=== PATIENT | male | born 1985 | race Caucasian/White ===

== ENCOUNTER → 2021-05-28 08:48 | Outpatient (CLI) | payer OTHER, SELFPAY ==
[2021-05-28 09:45] LABS: Add Manual Diff / Slide Review NO; Basophils Absolute Auto 100 /uL (0-100); Eosinophils Absolute Auto 200 /uL (0-450); Hematocrit 46.1 % (41-53); Hemoglobin 15.6 g/dL (13.5-17.5); Lymphocytes Absolute Auto 1700 /uL (1100-4500); Lymphocytes Percent Auto 30.7 % (25-40); Mean Corpuscular HGB Conc 33.8 % (30-36); Mean Corpuscular Hemoglobin 31.8 PG (26-34); Mean Corpuscular Volume 94.2 fL (80-100); Monocytes Absolute Auto 700 /uL (0-900); Monocytes Percent Auto 12.1 % (3-14); Neutrophils Absolute Auto 2900 /uL (1500-7000); Neutrophils Percent Auto 52.2 % (50-75); Platelet Count 209 X10^3/uL (150-400); Red Blood Cell Count 4.89 X10^6/uL (4.5-5.9); Red Cell Distribution Width 12.3 % (11.6-14.8); White Blood Cell Count 5.6 X10^3/uL (4.5-11.0)
[2021-05-28 09:58] LABS: Alanine Aminotransferase 30 IU/L (<50); Albumin 4.7 g/dL (3.5-5.0); Albumin Globulin Ratio 1.6 (1.0-2.8); Alkaline Phosphatase 41 U/L (38-126); Aspartate Aminotransferase 35 IU/L (17-59); BUN Creatinine Ratio 21.2 (6-22); Bilirubin Total 0.6 mg/dL (0.2-1.3); Blood Urea Nitrogen 14 mg/dL (9-20); Calcium 9.6 mg/dL (8.4-10.2); Carbon Dioxide 27 mmol/L (22-32); Chloride 105 mmol/L (98-107); Cholesterol 179 mg/dL (140-199); Estimated Glomerular Filt Rate > 60.0 mL/min (>60); Globulin 2.9 g/dL (1.7-4.1); Glucose 99 mg/dL (70-100); HDL Cholesterol 57 mg/dL (40-60); HEMOLYSIS < 15 (0-50); LDL Cholesterol Calculated 108 mg/dL (<100); Potassium 4.4 mmol/L (3.4-5.1); Sodium 140 mmol/L (137-145); Total Protein 7.6 g/dL (6.3-8.2); Triglycerides 72 mg/dL (35-150)
[2021-05-28 10:44] LABS: TSH w/ Reflex to FT4 2.81 uIU/mL (0.47-4.68)
== END ==
PROVIDERS: PCP Family Medicine; Referring Provider Family Medicine; Visit Provider Family Medicine
DX: F41.9 Anxiety disorder, unspecified (principal); I10 Essential (primary) hypertension; Z13.220 Encounter for screening for lipoid disorders
CPT/HCPCS: 36415; 80053; 80061; 84443; 85025

== ENCOUNTER → 2021-06-30 17:31 | Outpatient (CLI) | payer OTHER, SELFPAY ==
--- NOTE | 2021-06-30 17:33 | DI.MRI.S_ITS ---
PROCEDURE: MR ANKLE LT WO CON INDICATIONS: Achilles tendinitis, left leg TECHNIQUE: Noncontrast sagittal T1 spin echo and T2 fast spin echo with fat saturation, axial proton density fast spin echo and T2 fast spin echo with fat saturation, coronal T1 spin echo and T2 fast spin echo with fat saturation through the ankle/hindfoot. COMPARISON: None. FINDINGS: Image quality: Excellent. Bones and joints: No bone marrow contusions or fractures. No hindfoot coalitions. No osteochondral injuries of the talar dome. Small tibiotalar joint effusion is seen. No gross intra-articular loose body. Medial structures: The posterior tibialis, flexor digitorum longus, and flexor hallucis longus tendons are intact. The posterior tibial neurovascular bundle appears normal within the tarsal tunnel, without extrinsic mass effect. The deep layer (anterior and posterior tibiotalar ligaments) and superficial layer (tibionavicular, tibiospring, and tibiocalcaneal ligaments) of the deltoid ligament appear normal. The spring ligament components (superomedial calcaneonavicular, medioplantar oblique calcaneonavicular, and inferoplantar longitudinal ligaments) are intact. Lateral structures: The anterior talofibular, calcaneofibular, and posterior talofibular ligaments appear intact. More superiorly, the anterior and posterior tibiofibular ligaments appear intact, as is the intermalleolar ligament. The tibiofibular syndesmosis is normal in width at 2 mm or less. The peroneus longus and brevis tendons demonstrate normal location and morphology. Adjacent bony peroneal tubercle and retrotrochlear prominence are normal in size. The sinus tarsi demonstrates normal fatty signal, without edema, fibrosis, or cyst formation. Visualized sinus tarsi components (cervical ligament, interosseous talocalcaneal ligament, roots of the inferior extensor retinaculum) appear normal. The calcaneonavicular and calcaneocuboid components of the bifurcate ligament appear intact. The dorsal calcaneocuboid ligament appears intact. Anterior structures: The tibialis anterior, extensor hallucis longus, and extensor digitorum longus tendons appear intact. The dorsal talonavicular ligament appears intact. Posterior and plantar structures: Achilles tendon is mildly thickened with very subtle intrasubstance T2 hyperintense signal near its insertion of posterior calcaneus and mild surrounding soft tissue edema. No full-thickness Achilles tendon rupture. Medial and lateral bands of the plantar fascia are of normal thickness. No abductor digiti quinti muscle atrophy to suggest Hanna neuropathy. IMPRESSION: 1. Distal Achilles tendinosis near its insertion on posterior calculus. No full-thickness Achilles tendon rupture. 2. Rest of the ankle tendons and ligaments are grossly intact. 3. No marrow edema. No fracture or dislocation. Small tibiotalar joint effusion. No gross loose body. Dictated by: Celestine Swain M.D. on 07/01/2021 at 9:26 Approved by: Celestine Swain M.D. on 07/01/2021 at 9:49
== END ==
PROVIDERS: PCP Family Medicine; Referring Provider Podiatrist; Visit Provider Podiatrist
DX: M76.62 Achilles tendinitis, left leg (principal); M25.572 Pain in left ankle and joints of left foot; M25.472 Effusion, left ankle; R26.2 Difficulty in walking, not elsewhere classified
CPT/HCPCS: 73721

== ENCOUNTER → 2022-10-12 11:21 | Outpatient (CLI) | payer OTHER, SELFPAY ==
--- NOTE | 2022-10-12 11:23 | DI.RAD.S_ITS ---
PROCEDURE: XR FOOT RT MIN 3V INDICATIONS: right foot and ankle pain TECHNIQUE: 3 views of the foot were acquired. COMPARISON: [facility], CR, XR FOOT 3+ VIEWS RIGHT, 08/02/2022, 8:15. [facility], CR, XR ANKLE RT MIN 3V, 10/12/2022, 11:30. FINDINGS: Bones: There is near complete interval healing of previous mid 5th metatarsal. Alignment is stable. Soft tissues: No tibiotalar joint effusion. Achilles tendon appears normal. IMPRESSION: No visualized acute fracture or dislocation. However, if clinical concern and/or pain persist, short interval imaging followup in 7-10 days is recommended, as occult injury cannot be definitively excluded. Dictated by: Dolly Cho M.D. on 10/12/2022 at 14:43 Approved by: Dolly Cho M.D. on 10/12/2022 at 14:43
--- NOTE | 2022-10-12 11:23 | DI.RAD.S_ITS ---
PROCEDURE: XR ANKLE RT MIN 3V INDICATIONS: right foot and ankle pain TECHNIQUE: 3 views of the ankle were acquired. COMPARISON: [facility], , XR FOOT RT MIN 3V, 10/12/2022, 11:30. FINDINGS: Bones: Stable line with near complete interval healing of 5th metatarsal fracture. Ankle mortise is normally aligned. No suspicious bony lesions. Soft tissues: No tibiotalar joint effusion. Achilles tendon appears normal. IMPRESSION: No visualized acute fracture or dislocation. However, if clinical concern and/or pain persist, short interval imaging followup in 7-10 days is recommended, as occult injury cannot be definitively excluded. Dictated by: Dolly Cho M.D. on 10/12/2022 at 14:44 Approved by: Dolly Cho M.D. on 10/12/2022 at 14:44
== END ==
PROVIDERS: PCP Family Medicine; Referring Provider Family Medicine; Visit Provider Family Medicine
DX: S92.351D Displaced fracture of fifth metatarsal bone, right foot, subsequent encounter for fracture with routine healing (principal); M25.571 Pain in right ankle and joints of right foot; M79.671 Pain in right foot; X58.XXXD Exposure to other specified factors, subsequent encounter
CPT/HCPCS: 73610; 73630

== ENCOUNTER → 2023-03-18 10:10 | Outpatient (CLI) | payer OTHER, SELFPAY ==
[2023-03-18 11:10] LABS: Add Manual Diff / Slide Review NO; Basophils Absolute Auto 0 /uL (0-100); Basophils Percent Auto 0.9 % (0-2); Eosinophils Absolute Auto 200 /uL (0-450); Eosinophils Percent Auto 4.1 % (2-4); Hematocrit 46.9 % (41-53); Hemoglobin 16.3 g/dL (13.5-17.5); Lymphocytes Absolute Auto 1500 /uL (1100-4500); Lymphocytes Percent Auto 29.2 % (25-40); Mean Corpuscular HGB Conc 34.8 % (30-36); Mean Corpuscular Hemoglobin 32.9 PG (26-34); Mean Corpuscular Volume 94.4 fL (80-100); Monocytes Absolute Auto 600 /uL (0-900); Monocytes Percent Auto 11.2 % (3-14); Neutrophils Absolute Auto 2800 /uL (1500-7000); Neutrophils Percent Auto 54.6 % (50-75); Platelet Count 247 X10^3/uL (150-400); Red Blood Cell Count 4.97 X10^6/uL (4.5-5.9); Red Cell Distribution Width 12.7 % (11.6-14.8); White Blood Cell Count 5.2 X10^3/uL (4.5-11.0)
[2023-03-18 11:32] LABS: Erythrocyte Sedimentation Rate 1 MM/HR (0-15)
[2023-03-18 12:05] LABS: TSH w/ Reflex to FT4 2.74 uIU/mL (0.47-4.68)
[2023-03-18 13:28] LABS: Alanine Aminotransferase 34 IU/L (<50); Albumin 4.5 g/dL (3.5-5.0); Albumin Globulin Ratio 1.3 (1.0-2.8); Alkaline Phosphatase 49 U/L (38-126); Aspartate Aminotransferase 35 IU/L (17-59); BUN Creatinine Ratio 19.7 (6-22); Bilirubin Total 0.8 mg/dL (0.2-1.3); Blood Urea Nitrogen 13 mg/dL (9-20); C-Reactive Protein Quant 0.5 mg/dL (<1.0); Calcium 9.2 mg/dL (8.4-10.2); Carbon Dioxide 25 mmol/L (22-32); Chloride 105 mmol/L (98-107); Cholesterol 219 mg/dL (140-199); Estimated Glomerular Filt Rate > 60 mL/min (>60); Globulin 3.4 g/dL (1.7-4.1); Glucose 102 mg/dL (70-100); HDL Cholesterol 60 mg/dL (40-60); HEMOLYSIS < 15 (0-50); LDL Cholesterol Calculated 141 mg/dL (<100); Potassium 4.2 mmol/L (3.4-5.1); Sodium 138 mmol/L (137-145); Total Protein 7.9 g/dL (6.3-8.2); Triglycerides 91 mg/dL (35-150)
[2023-03-23 14:51] LABS: ANA Screen, IFA Negative (.)
== END ==
PROVIDERS: PCP Family Medicine; Referring Provider Family Medicine; Visit Provider Family Medicine
DX: F41.9 Anxiety disorder, unspecified (principal); G89.29 Other chronic pain; M25.571 Pain in right ankle and joints of right foot; M25.572 Pain in left ankle and joints of left foot; M54.9 Dorsalgia, unspecified; M79.671 Pain in right foot
CPT/HCPCS: 36415; 80053; 80061; 84443; 85025; 85651; 86038; 86140

== ENCOUNTER → 2023-08-17 14:02 | Outpatient (CLI) | payer OTHER, SELFPAY ==
--- NOTE | 2023-08-17 14:03 | DI.RAD.S_ITS ---
PROCEDURE: XR LUMBAR SPINE MIN 4V INDICATIONS: chronic lumbar pain jean left side TECHNIQUE: 5 views of the lumbar spine were acquired, including bilateral oblique views. COMPARISON: None. FINDINGS: Bones: 5 nonrib-bearing vertebrae are present. No acute fracture or traumatic subluxation. Vertebral body height and disc spaces are maintained. Mild facet arthropathy and osseous neural foraminal narrowing at L4-5 and L5-S1. Slight dextroconvex curvature of the lumbar spine which may be positional. Soft tissues: Overlying bowel gas pattern is normal. No suspicious soft tissue calcifications. Oblique images: No pars defects. IMPRESSION: 1. No acute fracture or traumatic subluxation. 2. Vertebral body height and disc spaces are maintained. Mild degenerative changes at L4-5 and L5-S1. If symptoms persist, an MRI can be obtained for further evaluation. Dictated by: Meghna Barahona M.D. on 08/17/2023 at 16:57 Approved by: Meghna Barahona M.D. on 08/17/2023 at 17:02
== END ==
PROVIDERS: PCP Family Medicine; Referring Provider Physician Assistant; Visit Provider Physician Assistant
DX: M54.9 Dorsalgia, unspecified (principal); G89.29 Other chronic pain
CPT/HCPCS: 72110

== ENCOUNTER → 2024-05-01 12:28 | Outpatient (CLI) | payer OTHER, SELFPAY ==
--- NOTE | 2024-05-01 12:30 | DI.RAD.S_ITS ---
PROCEDURE: XR WRIST RT MIN 3V INDICATIONS: Hx of fracture at age 12; wrist pain; some instability TECHNIQUE: 4 views of the wrist were acquired. COMPARISON: None. FINDINGS: Bones: Nonacute appearing bone fragments are seen at the ulnar styloid. Age-indeterminate dorsal bone fragments also seen adjacent to the radial styloid. No acute displaced fracture or dislocation. Mild STT and 1st CMC degenerative changes. Soft tissues: No suspicious calcifications. Possible small metallic bodies are seen adjacent to the radial styloid. IMPRESSION: Nonacute appearing ulnar styloid bone fragments. Age-indeterminate smaller dorsal bone fragment seen adjacent to the radial styloid, with possible punctate metallic bodies. Correlate with location of symptoms and consider cross-sectional imaging to further evaluate if needed. Dictated by: Wei Hou M.D. on 05/01/2024 at 14:22 Approved by: Wei Hou M.D. on 05/01/2024 at 14:24
== END ==
PROVIDERS: PCP Family Medicine; Referring Provider Physician Assistant; Visit Provider Physician Assistant
DX: Z31.69 Encounter for other general counseling and advice on procreation (principal); M25.531 Pain in right wrist; M25.331 Other instability, right wrist; R79.89 Other specified abnormal findings of blood chemistry; Z87.81 Personal history of (healed) traumatic fracture
CPT/HCPCS: 36415; 73110; 84402; 84403

== ENCOUNTER → 2024-07-10 16:05 | Outpatient (CLI) | payer OTHER, SELFPAY ==
[2024-07-10 17:17] LABS: Add Manual Diff / Slide Review NO; Basophils Absolute Auto 100 /uL (0-100); Basophils Percent Auto 1.2 % (0-2); Eosinophils Absolute Auto 100 /uL (0-450); Eosinophils Percent Auto 2.3 % (2-4); Hematocrit 45.1 % (41-53); Hemoglobin 15.8 g/dL (13.5-17.5); Lymphocytes Absolute Auto 1500 /uL (1100-4500); Mean Corpuscular Hemoglobin 33.1 PG (26-34); Mean Corpuscular Volume 94.7 fL (80-100); Monocytes Absolute Auto 600 /uL (0-900); Monocytes Percent Auto 10.1 % (3-14); Neutrophils Absolute Auto 3200 /uL (1500-7000); Neutrophils Percent Auto 58.4 % (50-75); Platelet Count 256 X10^3/uL (150-400); Red Blood Cell Count 4.76 X10^6/uL (4.5-5.9); Red Cell Distribution Width 12.3 % (11.6-14.8); White Blood Cell Count 5.5 X10^3/uL (4.5-11.0)
[2024-07-10 18:00] LABS: Alanine Aminotransferase 34 IU/L (<50); Albumin 4.6 g/dL (3.5-5.0); Albumin Globulin Ratio 1.4 (1.0-2.8); Alkaline Phosphatase 49 U/L (38-126); Aspartate Aminotransferase 35 IU/L (17-59); BUN Creatinine Ratio 19.7 (6-22); Bilirubin Total 0.6 mg/dL (0.2-1.3); Blood Urea Nitrogen 13 mg/dL (9-20); Calcium 9.4 mg/dL (8.4-10.2); Carbon Dioxide 27 mmol/L (22-32); Chloride 103 mmol/L (98-107); Cholesterol 206 mg/dL (140-199); Estimated Glomerular Filt Rate > 60 mL/min (>60); Globulin 3.2 g/dL (1.7-4.1); Glucose 104 mg/dL (70-100); HDL Cholesterol 52 mg/dL (40-60); HEMOLYSIS < 15 (0-50); LDL Cholesterol Calculated 111 mg/dL (<100); Potassium 3.8 mmol/L (3.4-5.1); Sodium 137 mmol/L (137-145); Total Protein 7.8 g/dL (6.3-8.2); Triglycerides 216 mg/dL (35-150)
[2024-07-10 18:06] LABS: Creatinine Urine Random 99.18 mg/dL
[2024-07-10 18:29] LABS: TSH w/ Reflex to FT4 2.23 uIU/mL (0.47-4.68)
== END ==
PROVIDERS: PCP Family Medicine; Referring Provider Family Medicine; Visit Provider Family Medicine
DX: F41.9 Anxiety disorder, unspecified (principal); M25.571 Pain in right ankle and joints of right foot; M25.572 Pain in left ankle and joints of left foot; M79.671 Pain in right foot; M54.9 Dorsalgia, unspecified; G89.29 Other chronic pain
CPT/HCPCS: 36415; 80053; 80061; 82043; 82172; 82570; 84443; 85025

== ENCOUNTER → 2025-06-25 17:02 | Outpatient (CLI) | payer OTHER, SELFPAY ==
--- NOTE | 2025-06-25 17:04 | DI.RAD.S_ITS ---
PROCEDURE: XR KNEE RT 3V INDICATIONS: Knee pain TECHNIQUE: 3 views of the knee were acquired. COMPARISON: None. FINDINGS: Bones: No fractures or dislocations. No patellar subluxation. Mild osteoarthritic changes are noted in medial femoral tibial compartment and lateral portion of patellofemoral compartment. No suspicious bony lesions. Soft tissues: No joint effusion. No suspicious soft tissue calcifications. IMPRESSION: Mild osteoarthritic changes in right knee as above. No fracture or dislocation. No significant joint effusion. Dictated by: Celestine Swain M.D. on 06/26/2025 at 9:34 Approved by: Celestine Swain M.D. on 06/26/2025 at 9:34
[2025-06-25 18:15] LABS: Hemoglobin A1C% w Est Avg Glu 5.5 % (4.0-6.0)
[2025-06-25 18:53] LABS: Add Manual Diff / Slide Review NO; Hematocrit 46.4 % (41-53); Hemoglobin 16.4 g/dL (13.5-17.5); Lymphocytes Absolute Auto 1900 /uL (1100-4500); Mean Corpuscular Hemoglobin 33.0 PG (26-34); Mean Corpuscular Volume 93.5 fL (80-100); Platelet Count 255 X10^3/uL (150-400)
[2025-06-25 18:54] LABS: Mean Corpuscular HGB Conc 35.3 % (30-36)
[2025-06-25 19:12] LABS: Alanine Aminotransferase 34 IU/L (<50); Albumin 4.8 g/dL (3.5-5.0); Albumin Globulin Ratio 1.8 (1.0-2.8); Alkaline Phosphatase 51 U/L (38-126); Blood Urea Nitrogen 13 mg/dL (9-20); Calcium 9.2 mg/dL (8.4-10.2); Carbon Dioxide 23 mmol/L (22-32); Chloride 105 mmol/L (98-107); Cholesterol 172 mg/dL (140-199); Estimated Glomerular Filt Rate > 60 mL/min (>60); Globulin 2.6 g/dL (1.7-4.1); Glucose 89 mg/dL (70-99); HDL Cholesterol 36 mg/dL (40-60); HEMOLYSIS < 15 (0-50); Potassium 4.1 mmol/L (3.4-5.1); Sodium 139 mmol/L (137-145); Total Protein 7.4 g/dL (6.3-8.2); Triglycerides 300 mg/dL (35-150)
[2025-06-25 19:16] LABS: Microalbumi Creatinin Ratio Ur 8.0 ug/mg CR (<30)
[2025-06-25 19:41] LABS: TSH w/ Reflex to FT4 2.13 uIU/mL (0.47-4.68)
== END ==
PROVIDERS: PCP Family Medicine; Referring Provider Family Medicine; Visit Provider Family Medicine
DX: M25.561 Pain in right knee (principal); F41.9 Anxiety disorder, unspecified; G89.29 Other chronic pain; R03.0 Elevated blood-pressure reading, without diagnosis of hypertension; Z00.00 Encounter for general adult medical examination without abnormal findings; R73.9 Hyperglycemia, unspecified; E78.5 Hyperlipidemia, unspecified; R79.89 Other specified abnormal findings of blood chemistry
CPT/HCPCS: 36415; 73562; 80053; 80061; 82043; 82570; 83036; 84402; 84403; 84443; 85025

== ENCOUNTER → 2025-07-22 07:57 | Outpatient (CLI) | payer OTHER, SELFPAY ==
[2025-07-22 09:28] LABS: Cholesterol 192 mg/dL (140-199); HDL Cholesterol 46 mg/dL (40-60); Triglycerides 134 mg/dL (35-150)
[2025-07-29 12:13] LABS: Percent Free Testosterone 2.16 % (1.50-4.20)
== END ==
PROVIDERS: PCP Family Medicine; Referring Provider Family Medicine; Visit Provider Family Medicine
DX: R79.89 Other specified abnormal findings of blood chemistry (principal); E78.5 Hyperlipidemia, unspecified
CPT/HCPCS: 36415; 80061; 84402; 84403

== ENCOUNTER → 2025-09-02 07:49 | Outpatient (CLI) | payer OTHER, SELFPAY ==
--- NOTE | 2025-09-02 07:51 | DI.MRI.S_ITS ---
PROCEDURE: MR KNEE RT WO CON INDICATIONS: right knee pain TECHNIQUE: Noncontrast sagittal PD fast spin echo and T2 fast spin echo with fat saturation, sagittal 3-D FLASH with fat saturation; coronal T1 spin echo and PD fast spin echo with fat saturation, and axial PD fast spin echo with fat saturation through the knee. COMPARISON: None. FINDINGS: Image quality: Excellent. Menisci: The medial and lateral menisci demonstrate normal morphology and internal signal. The meniscal root ligaments appear intact. Cruciate ligaments: The anterior and posterior cruciate ligaments appear intact. Medial structures: The medial collateral ligament appears intact. The posterior oblique ligament, semimembranosus tendon insertions, oblique popliteal ligament, and meniscocapsular junction appear intact. Visualized portions of the pes anserinus tendons appear normal. No abnormal bursal fluid. Lateral structures: The lateral collateral ligament, long and short heads of the biceps femoris tendon appear intact. The popliteus tendon appears normal; the popliteofibular ligament appears intact. The posterosuperior and anteroinferior popliteomeniscal fascicles appear intact. The arcuate and fabellofibular ligaments appear intact, on either side of the lateral inferior geniculate artery. Iliotibial band appears normal. Anterior structures: The quadriceps is intact. Mild tendinosis of the patellar tendon.. Patellar alignment is normal. No femoral trochlear dysplasia or ventral trochlear prominence. Mild superolateral Hoffa's fat pad edema, raising concern for patellar maltracking. Bones and cartilage: Mild chondrosis of the patellofemoral compartment with multifocal mild chondral edema in the patella. The cartilage of the medial and lateral compartments are well maintained. No acute fracture. Joint space: Small knee effusion. No popliteal cyst. Popliteal vasculature is unremarkable. No intra-articular body. IMPRESSION: 1. Findings suggestive of patellar maltracking. 2. Mild chondrosis of the patellofemoral compartment with mild subchondral marrow edema. Dictated by: Ayaka Wang M.D. on 09/02/2025 at 10:01 Approved by: Ayaka Wang M.D. on 09/02/2025 at 10:10
== END ==
LOC: MRI 07:51
PROVIDERS: PCP Family Medicine; Referring Provider Family Medicine; Visit Provider Orthopaedic Surgery Adult Reconstructive Orthopaedic Surgery
DX: M22.41 Chondromalacia patellae, right knee (principal); M25.461 Effusion, right knee; M25.561 Pain in right knee
CPT/HCPCS: 73721

== ENCOUNTER → 2025-11-05 10:18 | Outpatient (CLI) | payer OTHER, SELFPAY ==
--- NOTE | 2025-11-05 10:20 | DI.RAD.S_ITS ---
PROCEDURE: ORTHO-XR FOOT 3V WB RIGHT INDICATIONS: FOOT PAIN TECHNIQUE: Three weight-bearing views acquired of the foot. COMPARISON: None. FINDINGS: Bones: Mild pes planus deformity with decreased calcaneal pitch at 14???. Mild 1st MTP joint space loss, spurring, and cystic change. Deformity of remote, healed 5th metatarsal fracture. Mild tibiotalar joint space loss with mild marginal spur formation. No acute fractures or dislocations. No suspicious bony lesions. Soft tissues: No tibiotalar joint effusion. No suspicious soft tissue calcifications. IMPRESSION: Degenerative changes as described. Mild pes planus. Dictated by: Bing Owens M.D. on 11/05/2025 at 15:02 Approved by: Bing Owens M.D. on 11/05/2025 at 15:06
--- NOTE | 2025-11-05 10:20 | DI.RAD.S_ITS ---
P ROCEDURE: ORTHO-XR FOOT 3V WB LEFT COMPARISON: None. INDICATIONS: FOOT PAIN .. FINDINGS: Three weight-bearing views left foot. No acute fracture. Moderate asymmetric 1st MTP joint space loss with slight subluxation and moderate marginal spurring. No pes planus deformity. No suspicious bone lesions. The Achilles tendon and tibiotalar joint appear normal. 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 Dictated by: Bing Owens M.D. on 11/05/2025 at 15:06 Approved by: Bing Owens M.D. on 11/05/2025 at 15:08
== END ==
PROVIDERS: PCP Family Medicine; Referring Provider Podiatrist Foot & Ankle Surgery; Visit Provider Podiatrist Foot & Ankle Surgery
DX: M19.072 Primary osteoarthritis, left ankle and foot (principal); M21.41 Flat foot [pes planus] (acquired), right foot; M79.671 Pain in right foot; M79.672 Pain in left foot
CPT/HCPCS: 73630